=== PATIENT | male | born 1955 | race Caucasian/White ===

== ENCOUNTER 2016-09-30 14:59 | Emergency (ER) | payer OTHER ==
[2016-09-30 15:36] VITALS: BP 124/80; PULSE 82; TEMP 97.1; BMI 28.2
--- NOTE | 2016-09-30 15:36 | PDOC ---
Rapid Medical Evaluation Chief Complaint: Chronic pain Time Seen by Provider: 09/30/16 15:33 Medical Evaluation: Allergies Allergy/AdvReac Type Severity Reaction Status Date / Time No Known Allergies Allergy Verified 09/30/16 15:33 09/30/16 15:34 61 year old male with no medical history who arrives by EMS complaining of "lower back spasms" since morning. No associated symptoms (no LE numbness/ weakness, no dysuria or incontinence of urine, no fevers/chills). Pain is bilateral and intermittent. Currently 8/10. Took 6 Advil prior to arrival. -To FT for further evaluation
[2016-09-30] MEDS ORDERED: KETOROLAC TROMETHAMINE 60 MG/2 ML VIAL IM ONE (17:29)
[2016-09-30] MEDS ORDERED: KETOROLAC TROMETHAMINE 60 MG/2 ML VIAL ONE (17:36)
--- NOTE | 2016-09-30 17:49 | PDOC ---
History of Present Illness - General Chief Complaint: Chronic pain Stated Complaint: PAIN Time Seen by Provider: 09/30/16 15:33 History Source: Patient - History of Present Illness Occurred: reports: this morning Pain Location: reports: back Past History - Past Medical History Allergies/Adverse Reactions: Allergies Allergy/AdvReac Type Severity Reaction Status Date / Time No Known Allergies Allergy Verified 09/30/16 15:33 Home Medications: Ambulatory Orders Cyclobenzaprine HCl [Flexeril 10 mg] 10 mg PO TID PRN #9 tablet 09/30/16 Ibuprofen [Motrin -] 800 mg PO Q6H #30 tablet 09/30/16 Tramadol HCl 50 mg PO Q6H #15 tablet MDD 200mg 09/30/16 Other medical history: NONE - Psycho/Social/Smoking Cessation Hx Anxiety: No Suicidal Ideation: No Smoking History: Never smoked Have you smoked in the past 12 months: No Information on smoking cessation initiated: No Hx Alcohol Use: No Drug/Substance Use Hx: No Substance Use Type: None Review of Systems - Review of Systems Constitutional: No: Chills, Fever ABD/GI: No: Nausea, Vomiting : No: Dysuria, Frequency, Flank Pain, Hematuria Musculoskeletal: Yes: Back Pain Neurological: No: Numbness, Tingling, Weakness *Physical Exam - Vital Signs Last Vital Signs Temp Pulse Resp BP Pulse Ox 97.1 F L 82 18 124/80 100 09/30/16 15:00 09/30/16 15:00 09/30/16 15:00 09/30/16 15:00 09/30/16 15:00 - Physical Exam General Appearance: Yes: Appropriately Dressed, Mild Distress HEENT: positive: Normal Voice Neck: positive: Supple Respiratory/Chest: negative: Respiratory Distress Gastrointestinal/Abdominal: positive: Soft. negative: Tender Musculoskeletal: positive: Vertebral Tenderness. negative: CVA Tenderness Extremity: positive: Normal Inspection Integumentary: positive: Dry, Warm Neurologic: positive: Fully Oriented, Alert, Normal Mood/Affect Medical Decision Making - Medical Decision Making 09/30/16 17:44 61-year-old male denies any past medical history, here with left lower back pain that occurred this am. States pain feels like "a spasm", does not radiate, is constant and worsens with any movement. Not improved w/ advil. Denies trauma or other inciting factors. No lower extremity weakness, bowel or bladder incontinence or saddle anesthesia. No h/o similar pain. Denies dysuria, hematuria, nausea, vomiting, fever or chills. No history of kidney stones. See exam L lower back pain No trauma No infectious or neuro sxs Pain m/l MSK, i.e spasm, no sxs, n/v/f/c to suggest stone, no e/o infection, no e/o cauda equina, no rash Pt in mild distress w/ reproducible ttp to L mid and lower back -pain control in ED and reassess 09/30/16 18:08 Pt requesting to be discharged without waiting for reassessment. Prescription sent to pharmacy and pt told to follow-up with his PMD *DC/Admit/Observation/Transfer Diagnosis at time of Disposition: Back pain Qualifiers: Back pain location: low back pain Chronicity: acute Back pain laterality: left Sciatica presence: without sciatica Qualified Code(s): M54.5 - Low back pain - Discharge Dispostion Disposition: HOME Condition at time of disposition: Good - Prescriptions Prescriptions: Cyclobenzaprine HCl [Flexeril 10 mg] 10 mg PO TID PRN #9 tablet PRN Reason: Back Pain Ibuprofen [Motrin -] 800 mg PO Q6H #30 tablet Tramadol HCl 50 mg PO Q6H #15 tablet MDD 200mg - Referrals Referrals: STAFF,NOT ON [Primary Care Provider] - - Patient Instructions Printed Discharge Instructions: Low Back Pain Additional Instructions: The cause of your pain is most likely musculoskeletal, i.e spasm or strain. Take Motrin and Flexeril initially, and if you need further pain control, you can take tramadol. Flexeril and tramadol can make you drowsy, so please do not take unless you are home. If pain persists, please follow-up with your primary care physician
[2016-09-30] MEDS ORDERED: traMADol HCL 50 MG TABLET PO ONE (17:52)
[2016-09-30] MEDS ORDERED: CYCLOBENZAPRINE HCL 10 MG TABLET (FP) PO ONE (17:52)
[2016-09-30] MEDS ORDERED: CYCLOBENZAPRINE HCL 10 MG TABLET (FP) ONE (17:53)
[2016-09-30] MEDS ORDERED: traMADol HCL 50 MG TABLET ONE (17:53)
== END 2016-09-30 18:09 | disposition home or self-care (01) ==
LOC: JERFT 14:59
PROC: 3E0233Z Introduction of Anti-inflammatory into Muscle, Percutaneous Approach (ICD-10-PCS; principal; 2016-09-30)
DX: M54.5 Low back pain (principal)
CPT/HCPCS: 99281-25